=== PATIENT | female | born 1970 | race Caucasian/White ===

== ENCOUNTER 2018-07-18 17:37 | Inpatient (IN) | payer MEDICARE ==
[~2018-07-18] VITALS: Ht 147.3 cm; Wt 85.5 kg
--- NOTE | 2018-07-18 17:42 | NUR ---
CALLED NOT IN LOBBY
[2018-07-18] MEDS ORDERED: VANCOMYCIN PER PHARMACY MC ONE (18:00)
[2018-07-18] MEDS ORDERED: PIPERACILLIN/TAZO/PMX 3.375GM 50 ML IVPB ONE (18:00)
[2018-07-18] MEDS ORDERED: PIPERACILLIN/TAZO/PMX 3.375GM 50 ML ONE (18:22)
[2018-07-18 18:26] LABS: BASOPHILS # (AUTO) 0.04 x10^3/uL (0-0.1); BASOPHILS % (AUTO) 0 % (0-1); EOSINOPHILS # (AUTO) 0.04 x10^3/uL (0-0.4); EOSINOPHILS % (AUTO) 0 % (1-7); LYMPHOCYTES # (AUTO) 1.24 x10^3/uL (1-3.4); LYMPHOCYTES % (AUTO) 13 % (22-44); MD NO; MEAN CORPUSCULAR HEMOGLOBIN 31.3 pg (27.0-34.8); MEAN CORPUSCULAR HGB CONC 34.1 g/dL (32.4-35.8); MEAN CORPUSCULAR VOLUME 91.8 fL (80-100); MEAN PLATELET VOLUME 7.6 fL (7.4-10.4); MONOCYTES # (AUTO) 0.45 x10^3/uL (0.2-0.8); MONOCYTES % (AUTO) 5 % (2-9); NEUTROPHILS # (AUTO) 7.64 x10^3/uL (1.8-6.8); NEUTROPHILS % (AUTO) 81 % (42-75); PLATELET COUNT 351 x10^3/uL (130-400); RED BLOOD COUNT 5.25 x10^6/uL (3.82-5.3); RED CELL DISTRIBUTION WIDTH 13.5 % (9.6-15.2)
[2018-07-18] MEDS ORDERED: VANCOMYCIN 1,400 MG in SODIUM CHLORIDE 0.9% 250 ML IV ONE (18:30)
--- NOTE | 2018-07-18 18:30 | NUR ---
PT STATES THAT SHE NOTICED INCREASED SWELLING RIGHT LOWER EXTREMITY, FOLLOWED BY ERYTHEMA AND THEN BLISTERS. SKIN CONDITION STARTED DEVELOPING 3 WEEKS AGO. WENT TO PRIMARY CARE DOCTOR TODAY WHO SENT HER TO ER.
[2018-07-18 18:34] LABS: ALBUMIN 3.4 g/dL (3.4-5.0); ANION GAP 5 mmol/L (5-15); CALCIUM 9.1 mg/dL (8.5-10.1); CHLORIDE 106 mmol/L (98-107); CREATININE 0.68 mg/dL (0.55-1.02)
--- NOTE | 2018-07-18 19:15 | NUR ---
HOSPITALIST AT BEDSIDE
--- NOTE | 2018-07-18 19:41 | NUR ---
ULTRASOUND AT BEDSIDE
[2018-07-18] MEDS ORDERED: ACETAMINOPHEN 325 MG TABLET PO PRN (20:30)
[2018-07-18] MEDS ORDERED: SODIUM CHLORIDE FLUSH 10ML SYR IVF PRN (20:30)
[2018-07-18] MEDS ORDERED: VANCOMYCIN PER PHARMACY MC PRN (20:30)
[2018-07-18] MEDS ORDERED: POLYETHYLENE GLYCOL 17 GM PACKET PO PRN (20:30)
[2018-07-18] MEDS ORDERED: hydrALAzine 20 MG/ML, 1ML IVPush PRN (20:30)
--- NOTE | 2018-07-18 20:39 | NUR ---
REPORT TO FAROOQ ONEILL. PT TO BE TRANSFERED TO FLOOR
[2018-07-18 20:58] VITALS: BP 141/74
[2018-07-18] MEDS ORDERED: PHARMACOKINETIC CONSULTATION MC ONE (21:30)
[2018-07-18] MEDS ORDERED: PHARMACOKINETIC MONITORING MC PRN (21:30)
[2018-07-18] MEDS: AMPICILLIN/SULBACTAM 3 GM in SODIUM CHLORIDE 0.9% 100 ML IV SCH (21:33)
[2018-07-18] MEDS: ENOXAPARIN 40 MG/0.4 ML SQ SCH (21:33)
[2018-07-19 01:58] VITALS: BP 154/84
[2018-07-19] MEDS: AMPICILLIN/SULBACTAM 3 GM in SODIUM CHLORIDE 0.9% 100 ML IV SCH ×4 (03:18→21:21)
[2018-07-19 04:03] VITALS: BP 141/74
[2018-07-19 05:34] LABS: BASOPHILS # (AUTO) 0.04 x10^3/uL (0-0.1); BASOPHILS % (AUTO) 1 % (0-1); EOSINOPHILS # (AUTO) 0.06 x10^3/uL (0-0.4); EOSINOPHILS % (AUTO) 1 % (1-7); LYMPHOCYTES # (AUTO) 1.61 x10^3/uL (1-3.4); LYMPHOCYTES % (AUTO) 22 % (22-44); MD NO; MEAN CORPUSCULAR HEMOGLOBIN 31.7 pg (27.0-34.8); MEAN CORPUSCULAR HGB CONC 34.3 g/dL (32.4-35.8); MEAN CORPUSCULAR VOLUME 92.3 fL (80-100); MEAN PLATELET VOLUME 7.3 fL (7.4-10.4); MONOCYTES # (AUTO) 0.57 x10^3/uL (0.2-0.8); MONOCYTES % (AUTO) 8 % (2-9); NEUTROPHILS # (AUTO) 5.13 x10^3/uL (1.8-6.8); NEUTROPHILS % (AUTO) 69 % (42-75); PLATELET COUNT 310 x10^3/uL (130-400); RED BLOOD COUNT 4.45 x10^6/uL (3.82-5.3); RED CELL DISTRIBUTION WIDTH 12.9 % (9.6-15.2)
[2018-07-19 05:40] LABS: CHLORIDE 107 mmol/L (98-107)
[2018-07-19 05:48] LABS: ALANINE AMINOTRANSFERASE 14 U/L (12-78); ALBUMIN 2.8 g/dL (3.4-5.0); ALKALINE PHOSPHATASE 103 U/L (45-117); ANION GAP 8 mmol/L (5-15); CALCIUM 8.3 mg/dL (8.5-10.1); CREATININE 0.55 mg/dL (0.55-1.02); TOTAL PROTEIN 6.5 g/dL (6.4-8.2)
[2018-07-19 07:53] VITALS: BP 148/85
[2018-07-19] MEDS: VANCOMYCIN 1,200 MG in SODIUM CHLORIDE 0.9% 250 ML IV SCH ×2 (08:02→19:49)
[2018-07-19] MEDS: LISINOPRIL 10 MG TABLET PO SCH (09:21)
[2018-07-19] MEDS: OXYcodone IR 5MG TABLET PO PRN ×2 (10:22→19:59)
[2018-07-19 10:54] LABS: HCT (SEDRATE) 41.1 % (34.6-47.8)
[2018-07-19 13:26] VITALS: BP 126/77
[2018-07-19] MEDS ORDERED: MUPIROCIN OINT 2%, 22GM TP SCH ×2 (18:00→22:00)
[2018-07-19 20:40] VITALS: BP 136/80
[2018-07-19] MEDS: MUPIROCIN OINT 2%, 22GM TP SCH (21:00)
[2018-07-19] MEDS: ENOXAPARIN 40 MG/0.4 ML SQ SCH (21:21)
[2018-07-20 01:33] VITALS: BP 135/82
[2018-07-20] MEDS: AMPICILLIN/SULBACTAM 3 GM in SODIUM CHLORIDE 0.9% 100 ML IV SCH ×4 (03:19→20:30)
[2018-07-20 07:10] VITALS: BP 128/81
[2018-07-20] MEDS: LISINOPRIL 10 MG TABLET PO SCH (09:53)
[2018-07-20] MEDS: OXYcodone IR 5MG TABLET PO PRN ×2 (10:02→19:39)
[2018-07-20] MEDS: MUPIROCIN OINT 2%, 22GM TP SCH ×2 (10:03→20:30)
[2018-07-20] MEDS: VANCOMYCIN 1,200 MG in SODIUM CHLORIDE 0.9% 250 ML IV SCH ×2 (10:37→22:37)
[2018-07-20 13:11] VITALS: BP 157/84
[2018-07-20 19:22] VITALS: BP 127/80
[2018-07-20] MEDS: ENOXAPARIN 40 MG/0.4 ML SQ SCH (20:29)
[2018-07-21 00:25] VITALS: BP 136/85
[2018-07-21] MEDS: AMPICILLIN/SULBACTAM 3 GM in SODIUM CHLORIDE 0.9% 100 ML IV SCH ×4 (02:39→20:24)
[2018-07-21 07:46] VITALS: BP 138/89
[2018-07-21 08:00] LABS: ANION GAP 6 mmol/L (5-15); CALCIUM 7.6 mg/dL (8.5-10.1); CHLORIDE 106 mmol/L (98-107); CREATININE 0.51 mg/dL (0.55-1.02)
[2018-07-21 08:08] LABS: BASOPHILS # (AUTO) 0.03 x10^3/uL (0-0.1); BASOPHILS % (AUTO) 1 % (0-1); EOSINOPHILS # (AUTO) 0.32 x10^3/uL (0-0.4); EOSINOPHILS % (AUTO) 5 % (1-7); LYMPHOCYTES # (AUTO) 1.65 x10^3/uL (1-3.4); LYMPHOCYTES % (AUTO) 27 % (22-44); MD NO; MEAN CORPUSCULAR HEMOGLOBIN 31.6 pg (27.0-34.8); MEAN CORPUSCULAR VOLUME 92.8 fL (80-100); MEAN PLATELET VOLUME 7.2 fL (7.4-10.4); MONOCYTES # (AUTO) 0.49 x10^3/uL (0.2-0.8); MONOCYTES % (AUTO) 8 % (2-9); NEUTROPHILS % (AUTO) 60 % (42-75); PLATELET COUNT 310 x10^3/uL (130-400); RED BLOOD COUNT 4.17 x10^6/uL (3.82-5.3); RED CELL DISTRIBUTION WIDTH 12.8 % (9.6-15.2)
[2018-07-21] MEDS: LISINOPRIL 10 MG TABLET PO SCH ×2 (08:13→08:14)
[2018-07-21] MEDS: MUPIROCIN OINT 2%, 22GM TP SCH ×2 (09:08→21:01)
[2018-07-21] MEDS: OXYcodone IR 5MG TABLET PO PRN ×2 (09:19→20:24)
[2018-07-21] MEDS: VANCOMYCIN 1,200 MG in SODIUM CHLORIDE 0.9% 250 ML IV SCH ×2 (10:30→16:04)
[2018-07-21 14:30] VITALS: BP 135/87
[2018-07-21 19:11] VITALS: BP 159/91
[2018-07-21] MEDS: ENOXAPARIN 40 MG/0.4 ML SQ SCH (20:24)
[2018-07-22 01:38] VITALS: BP 145/83
[2018-07-22] MEDS: AMPICILLIN/SULBACTAM 3 GM in SODIUM CHLORIDE 0.9% 100 ML IV SCH ×3 (03:16→15:09)
[2018-07-22 05:54] LABS: ANION GAP 5 mmol/L (5-15); CHLORIDE 107 mmol/L (98-107); CREATININE 0.53 mg/dL (0.55-1.02)
[2018-07-22 05:59] LABS: BASOPHILS # (AUTO) 0.01 x10^3/uL (0-0.1); BASOPHILS % (AUTO) 0 % (0-1); EOSINOPHILS # (AUTO) 0.35 x10^3/uL (0-0.4); EOSINOPHILS % (AUTO) 6 % (1-7); LYMPHOCYTES # (AUTO) 1.23 x10^3/uL (1-3.4); LYMPHOCYTES % (AUTO) 20 % (22-44); MD NO; MEAN CORPUSCULAR HEMOGLOBIN 31.5 pg (27.0-34.8); MEAN CORPUSCULAR VOLUME 92.7 fL (80-100); MEAN PLATELET VOLUME 7.3 fL (7.4-10.4); MONOCYTES # (AUTO) 0.51 x10^3/uL (0.2-0.8); MONOCYTES % (AUTO) 8 % (2-9); NEUTROPHILS # (AUTO) 4.02 x10^3/uL (1.8-6.8); NEUTROPHILS % (AUTO) 66 % (42-75); PLATELET COUNT 302 x10^3/uL (130-400); RED BLOOD COUNT 4.25 x10^6/uL (3.82-5.3); RED CELL DISTRIBUTION WIDTH 12.9 % (9.6-15.2)
[2018-07-22 06:40] LABS: HCT (SEDRATE) 39.4 % (34.6-47.8)
[2018-07-22] MEDS: LISINOPRIL 10 MG TABLET PO SCH (08:22)
[2018-07-22] MEDS: OXYcodone IR 5MG TABLET PO PRN ×2 (08:29→21:43)
[2018-07-22] MEDS: MUPIROCIN OINT 2%, 22GM TP SCH ×2 (08:30→21:00)
[2018-07-22 08:41] VITALS: BP 137/79
[2018-07-22] MEDS: VANCOMYCIN 1,200 MG in SODIUM CHLORIDE 0.9% 250 ML IV SCH (10:39)
[2018-07-22 13:13] VITALS: BP 148/78
[2018-07-22] MEDS ORDERED: OXYC5TAB3 PO (15:07)
[2018-07-22 19:33] VITALS: BP 150/93
[2018-07-22] MEDS: SULFAMETH./TRIMETHOPRIM DS 800MG/160MG TABLET PO SCH (21:43)
[2018-07-22] MEDS: ENOXAPARIN 40 MG/0.4 ML SQ SCH (21:43)
[2018-07-23 00:44] VITALS: BP 155/90
[2018-07-23 07:24] VITALS: BP 126/83
[2018-07-23] MEDS: LISINOPRIL 10 MG TABLET PO SCH (09:22)
[2018-07-23] MEDS: SULFAMETH./TRIMETHOPRIM DS 800MG/160MG TABLET PO SCH ×2 (09:22→21:04)
[2018-07-23 12:35] VITALS: BP 145/61
[2018-07-23] MEDS: OXYcodone IR 5MG TABLET PO PRN ×2 (13:06→21:04)
[2018-07-23] MEDS: MUPIROCIN OINT 2%, 22GM TP SCH ×2 (13:18→22:35)
[2018-07-23] MEDS: ENOXAPARIN 30 MG/0.3 ML SQ SCH (17:29)
[2018-07-23 19:26] VITALS: BP 137/86
[2018-07-24 00:56] VITALS: BP 125/65
[2018-07-24 02:47] VITALS: BP 126/78
[2018-07-24] MEDS: ENOXAPARIN 30 MG/0.3 ML SQ SCH (05:24)
[2018-07-24 07:23] VITALS: BP 120/81
[2018-07-24] MEDS: LISINOPRIL 10 MG TABLET PO SCH (09:05)
[2018-07-24] MEDS: SULFAMETH./TRIMETHOPRIM DS 800MG/160MG TABLET PO SCH (09:05)
[2018-07-24] MEDS: OXYcodone IR 5MG TABLET PO PRN (12:55)
[2018-07-24 13:09] VITALS: BP 120/79
[2018-07-24] MEDS: MUPIROCIN OINT 2%, 22GM TP SCH (14:50)
[2018-07-24] MEDS ORDERED: LISI-167 PO (15:27)
[2018-07-24] MEDS ORDERED: SULF1TAB23 PO (15:27)
[2018-07-24 16:20] VITALS: BP 116/64
== END 2018-07-24 16:55 | disposition home or self-care (01) | DRG 603 ==
LOC: ED 18:22 → EDIP 20:11 → 3NE 20:45 → DCLOUNGE 07-24 16:40
PROVIDERS: ADMIT Family Medicine; ATTEND Family Medicine
DX: L03.115 Cellulitis of right lower limb (principal); E44.1 Mild protein-calorie malnutrition; R23.8 Other skin changes; D75.1 Secondary polycythemia; E86.0 Dehydration; I10 Essential (primary) hypertension; Q05.9 Spina bifida, unspecified; Z79.01 Long term (current) use of anticoagulants; Z68.39 Body mass index [BMI] 39.0-39.9, adult
CPT/HCPCS: 36415; 80048; 80053; 80202; 82040; 83605; 84145; 85025; 85651; 86140; 87040; 87070; 87077; 87186; 87205; 93306; 93922; 96366; 96367; G0378; J0295; J1650; J2543; J3370; J7050

== ENCOUNTER → 2018-07-31 | Outpatient (CLI) | payer MEDICARE ==
[~2018-07-31] MED LIST: LISI-167 PO; OXYC5TAB3 PO; SULF1TAB23 PO
== END | disposition home or self-care (01) ==
LOC: WOUND 14:12
PROVIDERS: ATTEND Internal Medicine
DX: L97.211 Non-pressure chronic ulcer of right calf limited to breakdown of skin (principal); L03.115 Cellulitis of right lower limb; R60.0 Localized edema; I10 Essential (primary) hypertension; Q05.7 Lumbar spina bifida without hydrocephalus; E66.9 Obesity, unspecified; Z68.37 Body mass index [BMI] 37.0-37.9, adult
CPT/HCPCS: 97597; 97598; G0463